=== PATIENT | female | born 1960 | race Caucasian/White ===

== ENCOUNTER → 2021-01-11 15:44 | Outpatient (CLI) | payer OTHER, SELFPAY ==
[2021-01-11 18:07] LABS: Absolute Lymphocyte Count 2.01 X10^3/uL (0.83-4.51); Basophil# 0.05 X10^3/uL; Basophil% 0.9 % (0-1); Eosinophil# 0.07 X10^3/uL; Eosinophils% 1.2 % (0-5); Hematocrit 46.8 % (37-47); Hemoglobin 15.5 g/dL (12.0-15.0); Lymphocyte # 2.01 X10^3/ul (0.83-4.51); Lymphocyte % 34.9 % (19-41); Mean Corp Hgb Conc 33.1 g/dL (32-36); Mean Corpuscular Volume 99.8 fL (81-99); Monocyte# 0.62 X10^3/uL; Monocyte% 10.8 % (0-10); NRBC Flagged by Analyzer 0 % (0-5); Neutrophil # 2.99 X10^3/uL (2.7-7.7); Neutrophil % 51.9 % (47-70); Platelet Count 202 K/mm3 (150-450); RBC Distribution Width CV 11.6 % (11.6-14.6); RBC Distribution Width SD 42.4 fl (35.1-43.9); Red Blood Count 4.69 M/mm3 (4.2-5.4); White Blood Count 5.8 K/mm3 (4.4-11.0)
[2021-01-11 18:38] LABS: ALB/GLOB Ratio 1.2 RATIO (0.9-2.4); AST(SGOT) 67 U/L (15-37); Alanine Aminotransfer ALT/SGPT 143 U/L (13-56); Albumin, Serum 3.8 g/dL (3.2-5.0); Alkaline Phosphatase 96 U/L (45-117); Anion Gap 6 (5-15); BUN 12 mg/dL (7-18); BUN/Creat Ratio 14.7 RATIO (10-20); Calcium,Total 10.1 mg/dL (8.5-10.1); Chloride 105 mmol/L (98-107); Creatinine, Serum 0.81 mg/dL (0.55-1.02); EST Glomerular Filtration Rate 76 mL/min (>60); Est Glom Filt Rate - Afr Amer 92 mL/min (>60); Globulin 3.3 g/dL (2.2-4.2); Glucose 91 mg/dL (74-106); Potassium 4.3 mmol/L (3.5-5.1); Protein, Total 7.1 g/dL (6.4-8.2); Sodium Level 140 mmol/L (136-145)
== END ==
PROVIDERS: PCP Student in an Organized Health Care Education/Training Program; Referring Provider Dermatology Pediatric Dermatology; Visit Provider Dermatology Pediatric Dermatology
DX: E80.1 Porphyria cutanea tarda (principal); L81.8 Other specified disorders of pigmentation; L82.1 Other seborrheic keratosis; D48.5 Neoplasm of uncertain behavior of skin
CPT/HCPCS: 36415; 80053; 85025

== ENCOUNTER → 2021-01-14 11:18 | Outpatient (CLI) | payer OTHER, SELFPAY ==
[2021-01-20 10:09] LABS: Coproporphyrin I, Urine 43 ug/L (Undefined); Coproporphyrin I,24 Hour 44 ug/24 hr (0-24); Coproporphyrin III, Urine 23 ug/L (Undefined); Heptacarboxylporph.,24 Hour 984 ug/24 hr (0-4); Heptacarboxylporph.,Urine 957 ug/L (Undefined); Hexacarboxylporph.,24 Hour <1 ug/24 hr (0-1); Hexacarboxylporph.,Urine <1 ug/L (Undefined); Pentacarboxylporph,24 Hour 36 ug/24 hr (0-4); Pentacarboxylporphyrin,Urine 35 ug/L (Undefined); Uroporphyrin, 24 Hour 1592 ug/24 hr (0-24); Uroporphyrin,Urine 1549 ug/L (Undefined)
[2021-01-20 10:24] LABS: Coproporphyrin III,24 Hour 24 ug/24 hr (0-74)
== END ==
PROVIDERS: PCP Student in an Organized Health Care Education/Training Program; Referring Provider Dermatology Pediatric Dermatology; Visit Provider Dermatology Pediatric Dermatology
DX: E80.1 Porphyria cutanea tarda (principal); L81.8 Other specified disorders of pigmentation; L82.1 Other seborrheic keratosis; D48.5 Neoplasm of uncertain behavior of skin
CPT/HCPCS: 81050; 84120